=== PATIENT | male | born 1975 | race Hispanic/Latino ===

== ENCOUNTER 2018-12-25 16:06 | Emergency (ER) | payer OTHER | END 2018-12-25 17:01 | disposition home or self-care (01) | LOC: EDH 16:06 | DX: J06.9 Acute upper respiratory infection, unspecified (principal) ==

== ENCOUNTER 2020-11-06 08:05 | Emergency (ER) | payer OTHER ==
[2020-11-06] MEDS ORDERED: LIDOCAINE HCL 1% 20 ML VIAL ONE (08:47)
[2020-11-06 10:33] LABS: BASOPHILS % (AUTO) 0.5 % (0.0-5.0); EOSINOPHILS % (AUTO) 0.3 % (0.0-8.0); HEMATOCRIT 47.3 % (42-54); LYMPHOCYTES % (AUTO) 13.2 % (21.0-51.0); MEAN CORPUSCULAR HGB CONC 33.6 g/dL (32.0-36.0); MEAN CORPUSCULAR VOLUME 92.2 fL (79-99); MONOCYTES % (AUTO) 10.4 % (3.0-13.0); NEUTROPHILS % (AUTO) 75.1 % (40.0-77.0); PLATELET COUNT (AUTO) 346 K/uL (130-400); RED BLOOD CELL COUNT(AUTO) 5.13 MIL/uL (4.50-6.20); RED CELL DISTRIBUTION WIDTH 14.3 % (11.0-15.5); WHITE BLOOD COUNT (AUTO) 12.7 K/uL (4.8-10.8)
[2020-11-06 10:38] LABS: CREATININE 0.9 mg/dL (0.5-1.5); POTASSIUM 4.1 mmol/L (3.5-5.1)
[2020-11-06 10:42] LABS: ALBUMIN 3.8 g/dL (3.5-5.0); BILIRUBIN,TOTAL 1.2 mg/dL (0.2-1.0); TOTAL PROTEIN, SERUM 7.7 g/dL (6.0-8.3)
== END 2020-11-06 09:59 | disposition home or self-care (01) ==
LOC: EDH 08:05
DX: L02.415 Cutaneous abscess of right lower limb (principal); L03.115 Cellulitis of right lower limb
CPT/HCPCS: 10061; 36415; 80053; 85025

== ENCOUNTER 2024-08-02 05:31 | Emergency (ER) | payer SELFPAY ==
[~2024-08-02] VITALS: Ht 162.6 cm; Wt 59.0 kg
[2024-08-02] MEDS: 0.9%NACL 1000ML 1,185 ML IV ONE (06:13)
[2024-08-02] MEDS: ketOROlac 15MG/ML VIAL (15MG/ML) IV ONE (06:14)
--- NOTE | 2024-08-02 06:41 | ERN ---
General Chief Complaint: FOOT INJURY/PAIN Stated Complaint: bilateral foot pain Time Seen by MD: 05:35 History of Present Illness Initial Comments 49-year-old male who comes in today with a chief complaint of bilateral foot pain. Patient has no other complaints patient states that has been walking all day and his had increased foot pain Allergies: Coded Allergies: No Known Allergies (Unverified Allergy, Unknown, 11/06/20) Past Medical History Past Medical History: No Pertinent History Past Surgical History: None ROS Dictation Constitutional: Negative for fever,chills, and weight loss Eyes: Negative for injury, pain,redness, and discharge ENT: Negative for injury,pain or swelling Cardiovascular: Negative for chest pain, palpitations, and edema Respiratory: Negative for shortness of breath, cough, and wheezing, Abdomen/GI: Negative for abdominal pain, nausea, vomiting, diarrhea, and constipation Back: Negative for injury and pain : Negative for injury, bleeding and discharge MS/Extremity: Bilateral Foot pain Skin: Negative for rash, and discoloration Neuro: Negative for headache, weakness, numbness, tingling, and seizure Psych: Negative for suicide ideation, homicidal ideation, and hallucinations Physical Exam Physical Exam Dictation General: awake, alert, NAD Head/Face: Normocephalic, atraumatic Eyes: PERRL, EOMI, ENT: oral cavity clear, Neck: Trachea midline, supple, Cardiovascular: RRR, normal S1/S2, No MRGs, no JVD Respiratory: CTAB, no respiratory distress, No rales or wheezes Abdomen: Soft, non-tender, non-distended, Skin: Warm, dry, normal turgor, no rash MS/Extremity: Pulses equal, no cyanosi Neuro: COAx4, GCS 15, strength 5/5, CN 2-12 intact MDM Patient was he has been given fluids and Toradol which has resolved his pain. Patient will be discharged MDM: Differential diagnosis: Musculoskeletal pain Rationale: Tests considered and ordered secondary to shared decision making include: Previous outside records reviewed: Old ER visits. Risk of complication and/or morbidity or mortality of patient management: None Medications-Per medication reconciliation Need for hospitalization: Patient does not meet criteria for hospitalization. Need for emergency major/minor surgery: No There are no social concerns with this patient. Prescription drug management Prescriptions will include symptomatic care Patient's prior external medical records from other ER visits were reviewed by me as indicated. Prior testing and results from previous visits were reviewed. Prior tests were taken into account with medical decision making and resource utilization, independent historian/historians were used to obtain complete medical history. I independently interpreted the test that were performed, results were reviewed by me and considered findings on radiology if ordered. Medical management and examination interpretation discussions were had by me with other qualified healthcare professionals as indicated for the patient's care. ED Course Orders Procedure Category Date Status Time 0.9%Nacl 1000ml (Ns PHA 08/02/24 In Process 1000ml) 06:00 Ketorolac PHA 08/02/24 Complete Tromethamine 15mg/Ml 06:00 Current Medications Medications (Trade) Dose Ordered Sig/Nany Route PRN Reason Start Time Stop Time Status Last Admin Dose Admin Ketorolac Tromethamine (toRADol) 15 mg ONCE ONCE IV 08/02/24 06:00 08/02/24 06:01 DC 08/02/24 06:14 Sodium Chloride 1,185 ml @ 395 mls/hr ONCE ONCE IV 08/02/24 06:00 08/02/24 08:59 08/02/24 06:13 Vital Signs Date Time Temp Pulse Resp B/P (MAP) Pulse Ox O2 Delivery O2 Flow Rate FiO2 08/02/24 05:32 97.3 84 16 125/87 99 Room Air 0 08/02/24 05:31 97.3 84 16 125/87 99 Room Air* 0 21 DX & DISP Disposition: Discharge Departure Impression: Primary Impression: Foot pain, bilateral Condition: Stable Referrals: SELF,REFERRAL (PCP) JAMEL PERSAUD MD Aug 02, 2024 06:41
[2024-08-02 06:50] VITALS: BP 121/82; PULSE 81; RESP 16; TEMP 97.6; O2SAT 99
== END 2024-08-02 07:02 | disposition home or self-care (01) ==
LOC: EDH 05:31
DX: M79.671 Pain in right foot (principal); M79.672 Pain in left foot; X58.XXXA Exposure to other specified factors, initial encounter; Y93.89 Activity, other specified; Y92.89 Other specified places as the place of occurrence of the external cause; Y99.8 Other external cause status
CPT/HCPCS: 99283; 96374; 96361; J7030; J1885